=== PATIENT | male | born 1950 | race Caucasian/White ===

== ENCOUNTER 2016-11-01 07:48 | Day surgery (SDC) | payer MEDICARE, BC ==
[~2016-11-01 07:48] MED LIST: RINGER'S SOLUTION,LACTATED 1,000 ML IV PRN
[2016-11-01] MEDS ORDERED: RINGER'S SOLUTION,LACTATED 1,000 ML IV ONE (08:22)
--- NOTE | 2016-11-01 09:39 | OR ---
Operative Report - Dictated Report Narrative: OPERATIVE REPORT DATE OF OPERATION: 11/01/2016 PREOPERATIVE DIAGNOSIS: History of colon polyps. Family history of colon cancer. POSTOPERATIVE DIAGNOSIS: 4 mm cecal polyp (pathology pending). Sigmoid diverticulosis OPERATION: Colonoscopy with snare polypectomy in the cecum SURGEON: Neha Lozano MD ANESTHESIA: VINCENT Jeremie Jack PHOTOGRAPH TINTER he had 3 tubular adenomas removed in 2011. He had negative colonoscopies in 2001 and 2006. His mother had colon cancer at age 65. The patient was having constipation issues however has improved with Benefiber. INDICATIONS FOR PROCEDURE: The patient is a 65-year-old male referred by Dr. Frey. FINDINGS: Significant sigmoid diverticulosis. 4 mm adenomatous polyp in the cecum (pathology pending) NARRATIVE OF PROCEDURE: The patient was identified in the holding area, and prior to the administration of anesthetic, a multidisciplinary timeout was observed. With the patient in the left lateral position and after the administration of intravenous sedation, the perineum was inspected. There was no evidence of pilonidal disease or skin breakdown. The external appearance of the anus was normal. Sphincter tone was good. The flexible fiberoptic colonoscope was inserted into the rectum which was insufflated with air. The rectal mucosa and submucosal vascular pattern appeared normal, the prep was seen to be complete. The scope was advanced through the sigmoid colon, which contained numerous non-impacted noninflamed diverticular openings. The scope was advanced up the descending colon, and around the splenic flexure where the triangular haustral architecture of the transverse colon was seen. The scope was advanced across the transverse colon, around the hepatic flexure to the cecum, where the confluence of tenia and the ileocecal valve were identified. A 4 mm adenomatous appearing polyp was identified. It was biopsied and then removed with cautery snare. The site was seen to be complete and hemostatic. The mucosa at this level appeared otherwise normal. The scope was then slowly withdrawn in a circular fashion so that all aspects of colonic mucosa were inspected. The colon was slightly redundant in course requiring standard reduction maneuvers to negotiate the hepatic flexure. The haustral architecture appeared well preserved throughout with no evidence of external compression. The mucosa and submucosal vascular pattern appeared normal, specifically there was no gross evidence to suggest colitis or inflammatory bowel disease and no AV malformations were seen. The diverticulosis was moderate in degree and confined primarily to the sigmoid colon. No additional polyps were encountered. The scope was gradually withdrawn to the level of the rectum. As much insufflated air as possible was removed. The scope was withdrawn from the patient and the procedure terminated. The patient tolerated the anesthetic and procedure well without complication and was transferred back to the ambulatory surgery area awake and in stable condition. The patient remained stable throughout a period of postoperative observation. He denied abdominal discomfort, was able to tolerate by mouth intake, and was up without assistance. I shared the operative findings with the patient and he was given copies of the photographs which appear in the medical record. He was discharged home with instructions not to engage in hazardous activity today, but may resume normal activity tomorrow, and advance diet as tolerated. History is to continue those medications as listed in the history and physical exam. I made arrangements to contact him with the biopsy reports and will make additional recommendations for treatment and follow-up based upon those results. He has had good results with the use of Benefiber and I suggested he continue with this Reviewed and electronically signed
[2016-11-01 10:22] VITALS: BP 139/82
== END 2016-11-01 07:49 | disposition home or self-care (01) ==
LOC: AMB 07:48
PROVIDERS: ATTEND Surgery
PROC: 0DBH8ZX Excision of Cecum, Via Natural or Artificial Opening Endoscopic, Diagnostic (ICD-10-PCS; principal; 2016-11-01 08:45)
DX: Z12.11 Encounter for screening for malignant neoplasm of colon (principal); D12.0 Benign neoplasm of cecum; K57.30 Diverticulosis of large intestine without perforation or abscess without bleeding; I10 Essential (primary) hypertension; E78.5 Hyperlipidemia, unspecified; K21.9 Gastro-esophageal reflux disease without esophagitis; Z80.0 Family history of malignant neoplasm of digestive organs; Z68.27 Body mass index [BMI] 27.0-27.9, adult